=== PATIENT | male | born 1985 | race Caucasian/White ===

== ENCOUNTER 2022-12-18 15:38 | Emergency (ER) | payer BC ==
[~2022-12-18] VITALS: Ht 172.7 cm; Wt 109.1 kg
[~2022-12-18 15:38] MED LIST: NO HOME MEDS
[2022-12-18 17:27] LABS: BASOPHILS % (AUTO) 0.1 % (0-1); EOSINOPHILS % (AUTO) 0.1 % (0-6); HEMATOCRIT 48.7 % (42.0-52.0); LYMPHOCYTES % (AUTO) 18.6 % (21-51); MEAN CORPUSCULAR HEMOGLOBIN 28.4 PG (27.0-31.0); MEAN CORPUSCULAR HGB CONC 32.9 g/dL (33.0-36.5); MEAN CORPUSCULAR VOLUME 86.6 FL (78-98); MEAN PLATELET VOLUME 8.6 FL (7.4-10.4); MONOCYTES # (AUTO) 2.4 X10'3 (0-0.9); MONOCYTES % (AUTO) 14.9 % (2-12); NEUTROPHILS # (AUTO) 10.8 X10'3 (1.8-7.7); NEUTROPHILS % (AUTO) 66.3 % (42-75); PLATELET COUNT 574 X10'3 (140-440); RED BLOOD COUNT 5.62 X10'6 (4.70-6.10); RED CELL DISTRIBUTION WIDTH 14.5 % (11.5-14.5); WHITE BLOOD COUNT 16.2 X10'3 (4.5-11.0)
[2022-12-18 17:42] LABS: ALANINE AMINOTRANSFERASE 26 U/L (12-78); ALBUMIN 3.4 G/DL (3.4-5.0); ALBUMIN/GLOBULIN RATIO 0.7 (1.1-1.5); ALKALINE PHOSPHATASE 75 IU/L (46-116); ANION GAP 9 (8-16); ASPARTATE AMINO TRANSFERASE 12 U/L (10-37); BILIRUBIN,TOTAL 1.4 MG/DL (0.1-1.0); BLOOD UREA NITROGEN 16 MG/DL (7-18); BUN/CREATININE RATIO 11.5 (5.4-32.0); CHLORIDE 98 MMOL/L (99-107); CREATININE 1.39 MG/DL (0.60-1.10); GLUCOSE 91 MG/DL (70-104); LIPASE 180 U/L (73-393); POTASSIUM 4.3 MMOL/L (3.5-5.1); SODIUM 135 MMOL/L (135-145); TOTAL CARBON DIOXIDE 28.4 MMOL/L (24-32); eGFR 57 ML/MIN
[2022-12-18 19:07] LABS: PLATELET ESTIMATE INCREASED; TOTAL CELLS COUNTED 100
[2022-12-18 19:08] LABS: SMUDGE CELLS FEW; TOXIC GRANULATION 2+
[2022-12-18 19:09] LABS: GIANT PLATELET FEW; LARGE PLATELETS FEW
[2022-12-18 20:10] VITALS: BP 152/96
== END 2022-12-18 21:53 | disposition left against medical advice (07) ==
LOC: ER 15:40
DX: R10.9 Unspecified abdominal pain (principal); R31.9 Hematuria, unspecified; Z53.21 Procedure and treatment not carried out due to patient leaving prior to being seen by health care provider
CPT/HCPCS: 36415; 80053; 83690; 85007; 85025; 86885; 86900; 86901; 99281

== ENCOUNTER 2023-12-01 13:08 | Emergency (ER) | payer BC ==
[~2023-12-01] VITALS: Ht 172.7 cm; Wt 96.0 kg
[2023-12-01] MEDS: HYDROmorphone inj. 0.5 MG/0.5 ML DISP.SYRIN IV ONE (14:34)
[2023-12-01] MEDS: CefTRIAXone/D5W-Rocephin 1gm 50 ML IV ONE (14:40)
[2023-12-01] MEDS: morphine 4 MG/ML inj SYRINge IV ONE (14:40)
[2023-12-01] MEDS: ketorolac trometh. 30mg/ml inj. IV ONE (14:40)
[2023-12-01 16:10] VITALS: BP 123/82; PULSE 86; RESP 18; TEMP 98.4; O2SAT 99
== END 2023-12-01 16:13 | disposition home or self-care (01) ==
LOC: ER 13:09
DX: N45.1 Epididymitis (principal); R11.0 Nausea
CPT/HCPCS: 76870; 93976; 96365; 96375; 99285; J0696; J1885; J2270